=== PATIENT | male | born 1980 | race Caucasian/White ===

== ENCOUNTER 2017-07-25 14:43 | Emergency (ER) | payer OTHER ==
[~2017-07-25] VITALS: Ht 177.8 cm; Wt 91.6 kg
[2017-07-25 18:50] VITALS: BP 127/72
== END 2017-07-25 18:55 | disposition home or self-care (01) ==
LOC: EME 14:43
DX: R51 Headache (principal); H93.13 Tinnitus, bilateral; Z87.891 Personal history of nicotine dependence
CPT/HCPCS: 70450; 99281; 99285; J0515; J1200; J2765; J7030